=== PATIENT | male | born 1940 | race Caucasian/White ===

== ENCOUNTER 2019-05-10 01:06 | Observation (INO) | payer MEDICARE, OTHER ==
[2019-05-10] MEDS ORDERED: Sodium Chloride 0.9% 10 ML Syringe FLUSH PRN (01:36)
--- NOTE | 2019-05-10 01:50 | EDM.PDOC ---
ED HPI GENERAL MEDICAL PROBLEM - General Chief Complaint: Cardiovascular Problem Stated Complaint: Slow Heart Rate Time Seen by Provider: 05/10/19 01:17 Source of Information: Reports: Patient, EMS, EMS Notes Reviewed History Limitations: Reports: No Limitations - History of Present Illness INITIAL COMMENTS - FREE TEXT/NARRATIVE: Jude is a pleasant 78 year-old male who arrives via EMS. He states that he awoke and felt the urge to have a bowel movement, but upon standing to get out of bed, he felt as if he "was going to black out". In response to his symptoms , he ambulated downstairs and lied down for awhile. He felt improved, but continued to have the urge to go to the bathroom and again, felt light-headed. This was associated with some "intestinal discomfort" although similar to the diarrhea he has been fighting on and off for about a month. He acknowledges some "chest pains" on a transient basis with the significant exertion of trying to move an ice house earlier today, which resolved immediately upon resting. This is not an atypical occurrence for him. He otherwise had no diaphoresis, SOB, or nausea. Denies fevers or recent illness. ROS only remarkable for a sore shoulder which he attributes to arthritis. EMS was called and found his initial pulse to be 27 bpm. He was provided with a single dose of .5 mg of atropine and had an otherwise uneventful transport. He did feel somewhat chilly upon arrival, and his heart rate continued in the 90's. - Related Data Allergies Allergy/AdvReac Type Severity Reaction Status Date / Time Penicillins Allergy Rash Verified 05/10/19 01:31 procaine HCl [From Novocain] Allergy Syncope Verified 05/10/19 01:31 Home Meds: Home Meds Ferrous Sulfate 325 mg PO DAILY 03/30/15 [History] Gabapentin [Neurontin] 100 mg PO TID 03/30/15 [History] Omeprazole 20 mg PO BIDAC 03/30/15 [History] SUMAtriptan succinate [Sumatriptan Succinate] 25 mg PO DAILY PRN 03/30/15 [ History] Simvastatin [Zocor] 20 mg PO BEDTIME 03/30/15 [History] Terazosin [Hytrin] 1 mg PO BEDTIME 03/30/15 [History] predniSONE [Prednisone] 6 mg PO DAILY 03/30/15 [History] traMADol [Ultram] 50 mg PO QID 03/30/15 [History] Carvedilol [Coreg] 12.5 mg PO BID 05/10/19 [History] lisinopriL [Lisinopril] 10 mg PO DAILY 05/10/19 [History] Past Medical History HEENT History: Reports: Macular Degeneration Other HEENT History: Lens implants bilateral, and injections in right eye every 6 weeks Cardiovascular History: Reports: Heart Failure (with EF of 30% on echo per pt; followed by Dr. Clarke Bland in [place]), [place] Gastrointestinal History: Reports: GERD, Other (See Below) Other Gastrointestinal History: Louis Wrap for Barretts esophogus Genitourinary History: Reports: BPH Musculoskeletal History: Reports: Arthritis Neurological History: Reports: CVA, Migraines Hematologic History: Reports: Anemia Dermatologic History: Reports: Eczema Other Dermatologic History: rash on back and right leg - Past Surgical History GI Surgical History: Reports: Alexander Fundoplication, Small Bowel, Other (See Below) Social & Family History - Living Situation & Occupation Living situation: Reports: ED ROS GENERAL - Review of Systems Review Of Systems: See Below Constitutional: Reports: No Symptoms Respiratory: Reports: No Symptoms Cardiovascular: Reports: Other (stable angina) GI/Abdominal: Reports: Diarrhea Musculoskeletal: Reports: Shoulder Pain Neurological: Reports: Dizziness ED EXAM, GENERAL - Physical Exam Exam: See Below Exam Limited By: No Limitations General Appearance: Alert, WD/WN, No Apparent Distress Eye Exam: Bilateral Eye: EOMI, PERRL Ears: Hearing Grossly Normal Throat/Mouth: Other (touch on the dry side) Neck: Other (no JVD evident) Respiratory/Chest: No Respiratory Distress, Lungs Clear, Normal Breath Sounds, Chest Non-Tender Cardiovascular: Regular Rate, Rhythm, No Edema, No Murmur GI/Abdominal: Normal Bowel Sounds, Soft, Non-Tender, No Distention Extremities: Normal Inspection, Non-Tender, No Pedal Edema, Normal Capillary Refill Neurological: Alert, Oriented, Normal Cognition, No Motor/Sensory Deficits Psychiatric: Normal Affect Skin Exam: Warm, Dry, Normal Color Lymphatic: No Adenopathy EKG INTERPRETATION EKG Date: 05/10/19 [place]: Normal QRS: LBBB Course - Vital Signs Text/Narrative:: Discussed differential diagnostic considerations and treatment options with Jude. He would appreciate it if we could continue to monitor him here. He does not usually follow Na-restrictions in regard to his diet at home. Seems a bit volume-depleted. Will lock IV and monitor for any further bradycardia. No overt manifestations of ischemia. He is noted to be on a non-selective beta candida, which may be blunting his anticipated orthostatic increase in pulse, and this may be further exacerbated by his decreased ejection fraction limiting his increase in cardiac output. Last Recorded V/S: Last Vital Signs Temp 98.9 F 05/10/19 08:18 Pulse 87 05/10/19 08:18 Resp 18 05/10/19 08:18 BP 127/56 L 05/10/19 08:18 Pulse Ox 94 L 05/10/19 08:18 - Orders/Labs/Meds Orders: Active Orders 24 hr Category Date Time Status Cardiac Monitoring [RC] Q4H Care 05/10/19 01:18 Active EKG Documentation Completion [RC] ASDIRECTED Care 05/10/19 01:20 Active Regular Diet [DIET] Diet 05/10/19 Breakfast Ordered Sodium Chloride 0.9% [Saline Flush] Med 05/10/19 01:36 Active 10 ml FLUSH ASDIRECTED PRN Saline Lock Insert [OM.PC] Routine Oth 05/10/19 01:36 Ordered EKG 12 Lead [EK] Stat Ther 05/10/19 01:19 Ordered Medication Orders Carvedilol (Coreg) 12.5 mg PO BID [facility] Last Admin: 05/10/19 08:15 Dose: 12.5 mg Lisinopril (Prinivil) 10 mg PO DAILY [facility] Last Admin: 05/10/19 08:15 Dose: 10 mg Omeprazole (Omeprazole) 40 mg PO DAILY [facility] Last Admin: 05/10/19 08:14 Dose: Not Given Admin: 05/10/19 08:14 Dose: 40 mg Prednisone (Prednisone) 1 mg PO WITHBREAKFAST [facility] Last Admin: 05/10/19 08:14 Dose: 1 mg Simvastatin (Zocor) 20 mg PO BEDTIME [facility] Sodium Chloride (Saline Flush) 10 ml FLUSH ASDIRECTED PRN PRN Reason: Keep Vein Open Terazosin HCl (Hytrin) 3 mg PO BEDTIME [facility] Labs: Laboratory Tests 05/10/19 05/10/19 05/10/19 Range/Units 01:44 01:44 01:44 WBC 13.0 H D (4.0-11.0) K/uL RBC 3.63 L (4.50-6.50) M/uL Hgb 12.7 L (13.0-18.0) g/dL Hct 37.0 L (40.0-54.0) % MCV 102 H (76-96) fL MCH 35.0 H (27.0-32.0) pg MCHC 34.3 (31.0-35.0) g/dL RDW 13.3 (11.0-16.0) % Plt Count 289 (150-400) K/uL MPV 9.8 (6.0-10.0) fL Neut % (Auto) 77.0 H (45.0-70.0) % Lymph % (Auto) 9.8 L (20.0-40.0) % [place] % (Auto) 11.9 H (3.0-10.0) % Eos % (Auto) 1.1 (1.0-5.0) % Baso % (Auto) 0.2 (0.0-0.5) % Neut # (Auto) 10.04 H (2.00-7.50) K/uL Lymph # (Auto) 1.28 L (1.50-4.00) K/uL [place] # (Auto) 1.55 H (0.20-0.80) K/uL Eos # (Auto) 0.14 (0.04-0.40) K/uL Baso # (Auto) 0.03 (0.02-0.10) K/uL Sodium 144 (136-145) mmol/L Potassium 5.2 H D (3.5-5.1) mmol/L Chloride 107 (98-107) mmol/L Carbon Dioxide 21.4 (21.0-32.0) mmol/L Anion Gap 20.8 H (5.0-15.0) mmol/L BUN 23 (8-26) mg/dL Creatinine 2.23 H D (0.70-1.30) mg/dL Est Cr Clr Drug Dosing TNP Estimated GFR (MDRD) 29 L (>60) MLS/MIN BUN/Creatinine Ratio 10.3 (6-25) Glucose 135 H (74-100) mg/dL Calcium 8.4 L (8.5-10.1) mg/dL Magnesium (1.8-2.4) mg/dL Total Bilirubin 0.4 (0.0-1.0) mg/dL AST 43 H (15-37) U/L ALT 37 (12-78) U/L Alkaline Phosphatase 90 (46-116) U/L Troponin I 0.003 D (0.000-0.060) ng/mL B-Natriuretic Peptide (0-450) pg/mL Total Protein 6.5 (6.4-8.2) g/dL Albumin 3.6 (3.4-5.0) g/dL Globulin 2.9 (2.2-4.2) g/dL Albumin/Globulin Ratio 1.2 (0.8-2.0) TSH, Ultra Sensitive 4.754 H (0.358-3.740) uIU/mL 05/10/19 05/10/19 Range/Units 01:44 02:03 WBC (4.0-11.0) K/uL RBC (4.50-6.50) M/uL Hgb (13.0-18.0) g/dL Hct (40.0-54.0) % MCV (76-96) fL MCH (27.0-32.0) pg MCHC (31.0-35.0) g/dL RDW (11.0-16.0) % Plt Count (150-400) K/uL MPV (6.0-10.0) fL Neut % (Auto) (45.0-70.0) % Lymph % (Auto) (20.0-40.0) % Thur[place] % (Auto) (3.0-10.0) % Eos % (Auto) (1.0-5.0) % Baso % (Auto) (0.0-0.5) % Neut # (Auto) (2.00-7.50) K/uL Lymph # (Auto) (1.50-4.00) K/uL Thurston # (Auto) (0.20-0.80) K/uL Eos # (Auto) (0.04-0.40) K/uL Baso # (Auto) (0.02-0.10) K/uL Sodium (136-145) mmol/L Potassium (3.5-5.1) mmol/L Chloride (98-107) mmol/L Carbon Dioxide (21.0-32.0) mmol/L Anion Gap (5.0-15.0) mmol/L BUN (8-26) mg/dL Creatinine (0.70-1.30) mg/dL Est Cr Clr Drug Dosing Estimated GFR (MDRD) (>60) MLS/MIN BUN/Creatinine Ratio (6-25) Glucose (74-100) mg/dL Calcium (8.5-10.1) mg/dL Magnesium 1.8 (1.8-2.4) mg/dL Total Bilirubin (0.0-1.0) mg/dL AST (15-37) U/L ALT (12-78) U/L Alkaline Phosphatase (46-116) U/L Troponin I (0.000-0.060) ng/mL B-Natriuretic Peptide 487 H (0-450) pg/mL Total Protein (6.4-8.2) g/dL Albumin (3.4-5.0) g/dL Globulin (2.2-4.2) g/dL Albumin/Globulin Ratio (0.8-2.0) TSH, Ultra Sensitive (0.358-3.740) uIU/mL Meds: Medications Generic Name Dose Route Start Last Admin Trade Name Freq PRN Reason Stop Dose Admin Carvedilol 12.5 mg 05/10/19 08:00 05/10/19 08:15 Coreg PO 12.5 mg BID ANIYA Administration Lisinopril 10 mg 05/10/19 08:00 05/10/19 08:15 Prinivil PO 10 mg DAILY ANIYA Administration Omeprazole 40 mg 05/10/19 07:00 05/10/19 08:14 Omeprazole PO 40 mg DAILY ANIYA Administration Prednisone 1 mg 05/10/19 07:00 05/10/19 08:14 Prednisone PO 1 mg WITHBREAKFAST ANIYA Administration Simvastatin 20 mg 05/10/19 20:00 Zocor PO BEDTIME ANIYA Sodium Chloride 10 ml 05/10/19 01:36 Saline Flush FLUSH ASDIRECTED PRN Keep Vein Open Terazosin HCl 3 mg 05/10/19 20:00 Hytrin PO BEDTIME ANIYA Departure - Departure Time of Disposition: 03:00 Disposition: Admitted As Inpatient 66 Clinical Impression: Orthostasis Sepsis Event Note - Focused Exam Vital Signs: Vital Signs Temp Pulse Resp BP Pulse Ox 05/10/19 01:20 96.3 F 94 18 146/69 H 100 Date Exam was Performed: 05/10/19 Time Exam was Performed: 09:14 - My Orders Last 24 Hours: My Active Orders 05/10/19 01:18 Cardiac Monitoring [RC] Q4H 05/10/19 01:19 EKG 12 Lead [EK] Stat 05/10/19 01:20 EKG Documentation Completion [RC] ASDIRECTED 05/10/19 01:36 Sodium Chloride 0.9% [Saline Flush] 10 ml FLUSH ASDIRECTED PRN Saline Lock Insert [OM.PC] Routine 05/10/19 Breakfast Regular Diet [DIET] - Assessment/Plan Last 24 Hours: My Active Orders 05/10/19 01:18 Cardiac Monitoring [RC] Q4H 05/10/19 01:19 EKG 12 Lead [EK] Stat 05/10/19 01:20 EKG Documentation Completion [RC] ASDIRECTED 05/10/19 01:36 Sodium Chloride 0.9% [Saline Flush] 10 ml FLUSH ASDIRECTED PRN Saline Lock Insert [OM.PC] Routine 05/10/19 Breakfast Regular Diet [DIET]
[2019-05-10] MEDS ORDERED: PREDNISONE 1 MG PO SCH (07:00)
[2019-05-10] MEDS ORDERED: LISINOPRIL 20 MG PO SCH (08:00)
[2019-05-10] MEDS ORDERED: CARVEDILOL 25 MG PO SCH (08:00)
[2019-05-10 08:15] VITALS: BP 127/56; PULSE 87
[2019-05-10] MEDS ORDERED: Ondansetron 4 MG/2 ML SDV IVPUSH PRN (09:28)
[2019-05-10] MEDS ORDERED: Acetaminophen 500 MG Tab PO PRN (09:29)
--- NOTE | 2019-05-10 09:38 | PCM.PN ---
- General Info Date of Service: 05/10/19 Subjective Update: Jude reports a mild frontal headache. He continues to have some abdominal discomfort. For that reason, he passed on breakfast. No chest pain or bradycardic events over night. No further cold intolerance. Some arthritis discomfort and he usually takes tylenol with decent pain relief. No apparent gerd issues on ppi. - Review of Systems Pulmonary: Reports: No Symptoms Cardiovascular: Reports: No Symptoms Gastrointestinal: Reports: Nausea Neurological: Reports: Headache - Patient Data Vitals - Most Recent: Last Vital Signs Temp 98.9 F 05/10/19 08:18 Pulse 87 05/10/19 08:18 Resp 18 05/10/19 08:18 BP 127/56 L 05/10/19 08:18 Pulse Ox 94 L 05/10/19 08:18 Weight - Most Recent: 139 lb 2 oz I&O - Last 24 Hours: Intake & Output 05/09/19 05/10/19 05/10/19 22:59 06:59 14:59 Output Total 400 Balance -400 Lab Results Last 24 Hours: Laboratory Results - last 24 hr 05/10/19 05/10/19 05/10/19 Range/Units 01:44 01:44 01:44 WBC 13.0 H D (4.0-11.0) K/uL RBC 3.63 L (4.50-6.50) M/uL Hgb 12.7 L (13.0-18.0) g/dL Hct 37.0 L (40.0-54.0) % MCV 102 H (76-96) fL MCH 35.0 H (27.0-32.0) pg MCHC 34.3 (31.0-35.0) g/dL RDW 13.3 (11.0-16.0) % Plt Count 289 (150-400) K/uL MPV 9.8 (6.0-10.0) fL Neut % (Auto) 77.0 H (45.0-70.0) % Lymph % (Auto) 9.8 L (20.0-40.0) % Towns % (Auto) 11.9 H (3.0-10.0) % Eos % (Auto) 1.1 (1.0-5.0) % Baso % (Auto) 0.2 (0.0-0.5) % Neut # (Auto) 10.04 H (2.00-7.50) K/uL Lymph # (Auto) 1.28 L (1.50-4.00) K/uL [place]s # (Auto) 1.55 H (0.20-0.80) K/uL Eos # (Auto) 0.14 (0.04-0.40) K/uL Baso # (Auto) 0.03 (0.02-0.10) K/uL Sodium 144 (136-145) mmol/L Potassium 5.2 H D (3.5-5.1) mmol/L Chloride 107 (98-107) mmol/L Carbon Dioxide 21.4 (21.0-32.0) mmol/L Anion Gap 20.8 H (5.0-15.0) mmol/L BUN 23 (8-26) mg/dL Creatinine 2.23 H D (0.70-1.30) mg/dL Est Cr Clr Drug Dosing TNP Estimated GFR (MDRD) 29 L (>60) MLS/MIN BUN/Creatinine Ratio 10.3 (6-25) Glucose 135 H (74-100) mg/dL Calcium 8.4 L (8.5-10.1) mg/dL Magnesium (1.8-2.4) mg/dL Total Bilirubin 0.4 (0.0-1.0) mg/dL AST 43 H (15-37) U/L ALT 37 (12-78) U/L Alkaline Phosphatase 90 (46-116) U/L Troponin I 0.003 D (0.000-0.060) ng/mL B-Natriuretic Peptide (0-450) pg/mL Total Protein 6.5 (6.4-8.2) g/dL Albumin 3.6 (3.4-5.0) g/dL Globulin 2.9 (2.2-4.2) g/dL Albumin/Globulin Ratio 1.2 (0.8-2.0) TSH, Ultra Sensitive 4.754 H (0.358-3.740) uIU/mL 05/10/19 05/10/19 Range/Units 01:44 02:03 WBC (4.0-11.0) K/uL RBC (4.50-6.50) M/uL Hgb (13.0-18.0) g/dL Hct (40.0-54.0) % MCV (76-96) fL MCH (27.0-32.0) pg MCHC (31.0-35.0) g/dL RDW (11.0-16.0) % Plt Count (150-400) K/uL MPV (6.0-10.0) fL Neut % (Auto) (45.0-70.0) % Lymph % (Auto) (20.0-40.0) % Towns % (Auto) (3.0-10.0) % Eos % (Auto) (1.0-5.0) % Baso % (Auto) (0.0-0.5) % Neut # (Auto) (2.00-7.50) K/uL Lymph # (Auto) (1.50-4.00) K/uL [place]s # (Auto) (0.20-0.80) K/uL Eos # (Auto) (0.04-0.40) K/uL Baso # (Auto) (0.02-0.10) K/uL Sodium (136-145) mmol/L Potassium (3.5-5.1) mmol/L Chloride (98-107) mmol/L Carbon Dioxide (21.0-32.0) mmol/L Anion Gap (5.0-15.0) mmol/L BUN (8-26) mg/dL Creatinine (0.70-1.30) mg/dL Est Cr Clr Drug Dosing Estimated GFR (MDRD) (>60) MLS/MIN BUN/Creatinine Ratio (6-25) Glucose (74-100) mg/dL Calcium (8.5-10.1) mg/dL Magnesium 1.8 (1.8-2.4) mg/dL Total Bilirubin (0.0-1.0) mg/dL AST (15-37) U/L ALT (12-78) U/L Alkaline Phosphatase (46-116) U/L Troponin I (0.000-0.060) ng/mL B-Natriuretic Peptide 487 H (0-450) pg/mL Total Protein (6.4-8.2) g/dL Albumin (3.4-5.0) g/dL Globulin (2.2-4.2) g/dL Albumin/Globulin Ratio (0.8-2.0) TSH, Ultra Sensitive (0.358-3.740) uIU/mL Med Orders - Current: Current Medications Acetaminophen (Tylenol Extra Strength) 1,000 mg PO Q6H PRN PRN Reason: Pain/Fever Carvedilol (Coreg) 12.5 mg PO BID [facility] Last Admin: 05/10/19 08:15 Dose: 12.5 mg Lisinopril (Prinivil) 10 mg PO DAILY [facility] Last Admin: 05/10/19 08:15 Dose: 10 mg Omeprazole (Omeprazole) 40 mg PO DAILY [facility] Last Admin: 05/10/19 08:14 Dose: 40 mg Ondansetron HCl (Zofran) 4 mg IVPUSH Q4H PRN PRN Reason: Nausea/Vomiting Prednisone (Prednisone) 1 mg PO WITHBREAKFAST [facility] Last Admin: 05/10/19 08:14 Dose: 1 mg Simvastatin (Zocor) 20 mg PO BEDTIME [facility] Sodium Chloride (Saline Flush) 10 ml FLUSH ASDIRECTED PRN PRN Reason: Keep Vein Open Terazosin HCl (Hytrin) 3 mg PO BEDTIME [facility] - Exam General: Alert, Oriented HEENT: Pupils Equal, EOMI, Mucous Membr. Moist/[address] Neck: Supple Lungs: Normal Respiratory Effort Cardiovascular: Regular Rate GI/Abdominal Exam: Normal Bowel Sounds, Soft, Non-Tender Extremities: Normal Inspection Skin: Warm, Dry Neurological: No New Focal Deficit Psy/Mental Status: Alert, Normal Affect, Normal Mood Sepsis Event Note - Evaluation Sepsis Screening Result: No Definite Risk - Focused Exam Vital Signs: Vital Signs Temp Temp Pulse Pulse Resp BP BP 05/10/19 08:18 98.9 F 87 18 127/56 L 05/10/19 08:15 87 127/56 L 05/10/19 03:15 98.4 F 91 16 127/63 05/10/19 01:20 96.3 F 94 18 146/69 H Pulse Ox 05/10/19 08:18 94 L 05/10/19 08:15 05/10/19 03:15 96 05/10/19 01:20 100 Date Exam was Performed: 05/10/19 Time Exam was Performed: 09:33 - Problem List & Annotations (1) Orthostasis SNOMED Code(s): 07645146 Code(s): I95.1 - ORTHOSTATIC HYPOTENSION Status: Acute Priority: High Current Visit: Yes Onset Date: ~05/09/19 - Problem List Review Problem List Initiated/Reviewed/Updated: Yes - My Orders Last 24 Hours: My Active Orders 05/10/19 01:18 Cardiac Monitoring [RC] Q4H 05/10/19 01:19 EKG 12 Lead [EK] Stat 05/10/19 01:20 EKG Documentation Completion [RC] ASDIRECTED 05/10/19 01:36 Sodium Chloride 0.9% [Saline Flush] 10 ml FLUSH ASDIRECTED PRN Saline Lock Insert [OM.PC] Routine 05/10/19 02:21 Patient Status [ADT] Routine 05/10/19 02:25 Bladder Scan [RC] ASDIRECTED 05/10/19 07:00 Omeprazole 40 mg PO DAILY predniSONE 1 mg PO WITHBREAKFAST 05/10/19 08:00 carvediloL [Coreg] 12.5 mg PO BID lisinopriL [Prinivil] 10 mg PO DAILY 05/10/19 09:28 Ondansetron [Zofran] 4 mg IVPUSH Q4H PRN 05/10/19 09:29 Acetaminophen [Tylenol Extra Strength] 1,000 mg PO Q6H PRN 05/10/19 09:31 TROPONIN I [CHEM] Routine EKG 12 Lead [EK] Routine 05/10/19 09:32 EKG Documentation Completion [RC] ASDIRECTED 05/10/19 20:00 Simvastatin [Zocor] 20 mg PO BEDTIME Terazosin [Hytrin] 3 mg PO BEDTIME 05/10/19 Breakfast Regular Diet [DIET]
[2019-05-10] MEDS ORDERED: TERAZOSIN 1 MG PO SCH (20:00)
[2019-05-10] MEDS ORDERED: SIMVASTATIN 40 MG PO SCH (20:00)
== END 2019-05-10 14:07 | disposition home or self-care (01) ==
LOC: LB.ED 01:06 → LB.MS 02:21 → UNDOADMOB 03:00 → LB.MS 03:00
PROVIDERS: ADMIT Family Medicine; ATTEND Family Medicine
DX: I95.1 Orthostatic hypotension (principal); I50.9 Heart failure, unspecified; I25.2 Old myocardial infarction; K21.9 Gastro-esophageal reflux disease without esophagitis; G43.909 Migraine, unspecified, not intractable, without status migrainosus; K22.70 Barrett's esophagus without dysplasia; L30.9 Dermatitis, unspecified; M19.90 Unspecified osteoarthritis, unspecified site; Z88.0 Allergy status to penicillin; Z88.1 Allergy status to other antibiotic agents; Z79.899 Other long term (current) drug therapy; Z86.73 Personal history of transient ischemic attack (TIA), and cerebral infarction without residual deficits; Z98.890 Other specified postprocedural states
CPT/HCPCS: 36415; 51798; 80053; 83735; 83880; 84443; 84484; 85025; 93005; 96374; 99285-25; A9270-GY; G0378; J2405

== ENCOUNTER 2019-08-31 01:42 | Observation (INO) | payer OTHER ==
--- NOTE | 2019-08-31 03:31 | EDM.PDOC ---
ED HPI GENERAL MEDICAL PROBLEM - General Chief Complaint: Cardiovascular Problem Stated Complaint: low pulse rate and BP also low Time Seen by Provider: 08/31/19 03:00 Source of Information: Reports: Patient, Family History Limitations: Reports: No Limitations - History of Present Illness INITIAL COMMENTS - FREE TEXT/NARRATIVE: This patient presents to the ED for evaluation of low heart rate. He states he woke from sleep at approximately 2400 "gasping for breath" and feeling light headed. He states he tried to get out of bed and "fell to his knees." His took his blood pressure which she said was low and his pulse was in the 30s. He denies having chest pain but states he had "head congestion" that he adds he has every night. He also states he has had a cough since February. He denies fever, nausea, vomiting. He had a similar episode in May for which he was admitted to the hospital. 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 Onset: Today - Related Data Allergies Allergy/AdvReac Type Severity Reaction Status Date / Time Penicillins Allergy Rash Verified 05/10/19 01:31 procaine HCl [From Novocain] Allergy Syncope Verified 05/10/19 01:31 Home Meds: Home Meds Ferrous Sulfate 325 mg PO DAILY 03/30/15 [History] Gabapentin [Neurontin] 100 mg PO TID 03/30/15 [History] Omeprazole 20 mg PO BIDAC 03/30/15 [History] SUMAtriptan succinate [Sumatriptan Succinate] 25 mg PO DAILY PRN 03/30/15 [ History] Simvastatin [Zocor] 20 mg PO BEDTIME 03/30/15 [History] Terazosin [Hytrin] 1 mg PO BEDTIME 03/30/15 [History] predniSONE [Prednisone] 5 mg PO DAILY 03/30/15 [History] traMADol [Ultram] 50 mg PO QID 03/30/15 [History] carvediloL [Coreg] 12.5 mg PO BID 05/10/19 [History] lisinopriL [Lisinopril] 10 mg PO DAILY 05/10/19 [History] Past Medical History HEENT History: Reports: Macular Degeneration Other HEENT History: Lens implants bilateral, and injections in right eye every 6 weeks Cardiovascular History: Reports: Heart Failure (with EF of 30% on echo per pt; followed by Dr. Clarke Bland in [place]), [place] Respiratory History: Reports: None Gastrointestinal History: Reports: GERD, Other (See Below) Other Gastrointestinal History: Louis Wrap for Barretts esophogus Genitourinary History: Reports: BPH Musculoskeletal History: Reports: Arthritis Neurological History: Reports: CVA, Migraines Psychiatric History: Reports: None Endocrine/Metabolic History: Reports: None Hematologic History: Reports: Anemia Oncologic (Cancer) History: Reports: None Dermatologic History: Reports: Eczema Other Dermatologic History: rash on back and right leg - Past Surgical History GI Surgical History: Reports: Alexander Fundoplication, Small Bowel, Other (See Below) Social & Family History - Caffeine Use Caffeine Use: Reports: Coffee - Living Situation & Occupation Living situation: Reports: ED ROS GENERAL - Review of Systems Review Of Systems: See Below Constitutional: Denies: Fever, Weakness HEENT: Reports: No Symptoms Respiratory: Reports: Cough Cardiovascular: Reports: Blood Pressure Problem. Denies: Chest Pain, Edema, Orthopnea GI/Abdominal: Denies: Abdominal Pain, Diarrhea, Nausea, Vomiting Musculoskeletal: Reports: No Symptoms Skin: Reports: No Symptoms Neurological: Reports: No Symptoms ED EXAM, GENERAL - Physical Exam Exam: See Below Exam Limited By: No Limitations General Appearance: Alert, WD/WN, No Apparent Distress Eye Exam: Bilateral Eye: PERRL Ears: Normal External Exam Nose: Normal Inspection Throat/Mouth: Normal Inspection, Normal Oropharynx Head: Atraumatic, Normocephalic Neck: Normal Inspection, Supple, Full Range of Motion Respiratory/Chest: No Respiratory Distress, Lungs Clear, Normal Breath Sounds, No Accessory Muscle Use, Chest Non-Tender Cardiovascular: Regular Rate, Rhythm Neurological: Alert, Oriented Psychiatric: Normal Affect Skin Exam: Warm, Dry, Intact Course - Vital Signs Last Recorded V/S: Last Vital Signs Temp 36.3 C 08/31/19 02:45 Pulse 76 08/31/19 02:45 Resp 18 08/31/19 02:45 BP 123/66 08/31/19 02:45 Pulse Ox 97 08/31/19 02:45 - Orders/Labs/Meds Orders: Active Orders 24 hr Category Date Time Status Admission Diagnosis [ADT] Stat ADT 08/31/19 03:50 Ordered EKG Documentation Completion [RC] ASDIRECTED Care 08/31/19 03:03 Active Chest 1V Frontal [CR] Stat Exams 08/31/19 03:03 Ordered Labs: Laboratory Tests 08/31/19 08/31/19 Range/Units 03:15 03:15 WBC 5.4 D (4.0-11.0) K/uL RBC 2.94 L (4.50-6.50) M/uL Hgb 10.6 L (13.0-18.0) g/dL Hct 30.5 L (40.0-54.0) % MCV 104 H (76-96) fL MCH 36.1 H (27.0-32.0) pg MCHC 34.8 (31.0-35.0) g/dL RDW 13.2 (11.0-16.0) % Plt Count 264 (150-400) K/uL MPV 8.8 (6.0-10.0) fL Neut % (Auto) 44.8 L (45.0-70.0) % Lymph % (Auto) 32.1 (20.0-40.0) % [place]ia % (Auto) 18.7 H (3.0-10.0) % Eos % (Auto) 3.7 (1.0-5.0) % Baso % (Auto) 0.7 H (0.0-0.5) % Neut # (Auto) 2.39 (2.00-7.50) K/uL Lymph # (Auto) 1.72 (1.50-4.00) K/uL Cassia # (Auto) 1.00 H (0.20-0.80) K/uL Eos # (Auto) 0.20 (0.04-0.40) K/uL Baso # (Auto) 0.04 (0.02-0.10) K/uL Sodium 145 (136-145) mmol/L Potassium 4.5 (3.5-5.1) mmol/L Chloride 109 H (98-107) mmol/L Carbon Dioxide 28.4 D (21.0-32.0) mmol/L Anion Gap 12.1 (5.0-15.0) mmol/L BUN 18 D (8-26) mg/dL Creatinine 1.15 D (0.70-1.30) mg/dL Est Cr Clr Drug Dosing 53.78 mL/min Estimated GFR (MDRD) > 60 (>60) MLS/MIN BUN/Creatinine Ratio 15.7 (6-25) Glucose 122 H (74-100) mg/dL Calcium 8.3 L (8.5-10.1) mg/dL Troponin I < 0.017 (0.000-0.060) ng/mL B-Natriuretic Peptide 221 D (0-450) pg/mL - Re-Assessments/Exams Free Text/Narrative Re-Assessment/Exam: 08/31/19 03:52 This patient presents to the ED for evaluation of bradycardia. While in the ED being monitored, he has not had any bradycardia noted; however, given his report of a fall related to having a low blood pressure, I will admit him to the hospital on observation status for cardiac monitoring. the patient and his were agreeable with this. Departure - Departure Time of Disposition: 03:55 Disposition: Refer to Observation Condition: Good, Fair Clinical Impression: Bradycardia Referrals: PCP,None [Primary Care Provider] - Forms: ED Department Discharge Sepsis Event Note - Focused Exam Vital Signs: Vital Signs Temp Pulse Resp BP Pulse Ox 08/31/19 02:45 36.3 C 76 18 123/66 97 Date Exam was Performed: 08/31/19 Time Exam was Performed: 03:52 - My Orders Last 24 Hours: My Active Orders 08/31/19 03:03 EKG Documentation Completion [RC] ASDIRECTED Chest 1V Frontal [CR] Stat 08/31/19 03:50 Admission Diagnosis [ADT] Stat - Assessment/Plan Last 24 Hours: My Active Orders 08/31/19 03:03 EKG Documentation Completion [RC] ASDIRECTED Chest 1V Frontal [CR] Stat 08/31/19 03:50 Admission Diagnosis [ADT] Stat
[2019-08-31] MEDS ORDERED: Ondansetron 4 MG Tab.DIS PO PRN (04:17)
[2019-08-31] MEDS ORDERED: LORazepam 0.5 MG Tab PO PRN (04:17)
[2019-08-31] MEDS ORDERED: Acetaminophen 325 MG Tab PO PRN (04:17)
[2019-08-31] MEDS ORDERED: SUMATRIPTAN SUCCINATE 25 MG PO PRN (04:19)
[2019-08-31] MEDS ORDERED: Non-Formulary Medication 1 Each (Omeprazole [Omeprazole] 20 MG) PO SCH (07:00)
[2019-08-31 07:50] VITALS: BP 148/68; PULSE 72
[2019-08-31] MEDS ORDERED: Non-Formulary Medication 1 Each (Ferrous Sulfate [Ferrous Sulfate] 325 MG) PO SCH (08:00)
[2019-08-31] MEDS ORDERED: Non-Formulary Medication 1 Each (Tramadol [Ultram] 50 MG) PO SCH (08:00)
[2019-08-31] MEDS ORDERED: Non-Formulary Medication 1 Each (Gabapentin [Neurontin] 100 MG) PO SCH (08:00)
[2019-08-31] MEDS ORDERED: Non-Formulary Medication 1 Each (Lisinopril [Lisinopril] 10 MG) PO SCH (08:00)
[2019-08-31] MEDS ORDERED: PREDNISONE 5 MG PO SCH (08:00)
--- NOTE | 2019-08-31 08:22 | CR ---
DATE OF SERVICE: 08/31/19 CLINICAL DATA: bradycardia AP CHEST: Comparison is made to a prior exam dated 03/30/15. The heart size is normal. The lungs are clear. No pneumothorax. No pleural effusions. No evidence of acute intrathoracic disease. [id number] [facility]
[2019-08-31] MEDS ORDERED: traMADol 50 MG Tab ONE (09:13)
[2019-08-31] MEDS ORDERED: Gabapentin 100 MG Cap ONE (09:13)
[2019-08-31] MEDS ORDERED: predniSONE 5 MG Tab ONE (09:14)
[2019-08-31] MEDS ORDERED: Omeprazole 20 MG Cap.CR PO ONE (09:30)
[2019-08-31] MEDS ORDERED: traMADol 50 MG Tab PO ONE (09:30)
[2019-08-31] MEDS ORDERED: Gabapentin 100 MG Cap PO ONE (09:30)
[2019-08-31] MEDS ORDERED: Ferrous Sulfate 325 MG Tab PO ONE (09:30)
[2019-08-31] MEDS ORDERED: predniSONE 5 MG Tab PO ONE (09:30)
--- NOTE | 2019-08-31 11:43 | PCM.DCSUM1 ---
Discharge Summary - Hospital Course Free Text/Narrative:: Patient has had no further episodes of bradycardia since admission. He denies chest pain, other concerns or complaints. Diagnosis: Stroke: No - Discharge Data Discharge Date: 08/31/19 Discharge Disposition: Home, Self-Care 01 Condition: Good - Referral to Home Health Primary Care Physician: PCP None - Discharge Plan *PRESCRIPTION DRUG MONITORING PROGRAM REVIEWED*: No Home Medications: Home Meds Ferrous Sulfate 325 mg PO DAILY 03/30/15 [History] Gabapentin [Neurontin] 100 mg PO TID 03/30/15 [History] Omeprazole 20 mg PO BIDAC 03/30/15 [History] SUMAtriptan succinate [Sumatriptan Succinate] 25 mg PO DAILY PRN 03/30/15 [ History] Simvastatin [Zocor] 20 mg PO BEDTIME 03/30/15 [History] Terazosin [Hytrin] 1 mg PO BEDTIME 03/30/15 [History] predniSONE [Prednisone] 5 mg PO DAILY 03/30/15 [History] traMADol [Ultram] 50 mg PO QID 03/30/15 [History] carvediloL [Coreg] 12.5 mg PO BID 05/10/19 [History] lisinopriL [Lisinopril] 10 mg PO DAILY 05/10/19 [History] Forms: ED Department Discharge Referrals: PCP,None [Primary Care Provider] - - Discharge Summary/Plan Comment DC Time >30 min.: Yes - General Info Date of Service: 08/31/19 Admission Dx/Problem (Free Text: Bradycardia Hypotension Subjective Update: No further episodes of bradycardia or hypotension. He denies chest pain, difficulty breathing, headache, nausea, vomiting, or diarrhea. Functional Status: Reports: Tolerating Diet - Review of Systems General: Reports: No Symptoms HEENT: Reports: No Symptoms Pulmonary: Denies: Shortness of Breath, Cough Cardiovascular: Denies: Chest Pain, Palpitations, Lightheadedness Gastrointestinal: Denies: Abdominal Pain, Diarrhea, Nausea, Vomiting Musculoskeletal: Reports: No Symptoms Skin: Reports: No Symptoms Neurological: Reports: No Symptoms - Patient Data Vitals - Most Recent: Last Vital Signs Temp 36.3 C 08/31/19 07:49 Pulse 72 08/31/19 07:49 Resp 16 08/31/19 07:49 BP 148/68 H 05/24/20 07:49 Pulse Ox 96 08/31/19 07:49 Weight - Most Recent: 65.045 kg Lab Results - Last 24 hrs: Laboratory Results - last 24 hr 08/31/19 08/31/19 Range/Units 03:15 03:15 WBC 5.4 D (4.0-11.0) K/uL RBC 2.94 L (4.50-6.50) M/uL Hgb 10.6 L (13.0-18.0) g/dL Hct 30.5 L (40.0-54.0) % MCV 104 H (76-96) fL MCH 36.1 H (27.0-32.0) pg MCHC 34.8 (31.0-35.0) g/dL RDW 13.2 (11.0-16.0) % Plt Count 264 (150-400) K/uL MPV 8.8 (6.0-10.0) fL Neut % (Auto) 44.8 L (45.0-70.0) % Lymph % (Auto) 32.1 (20.0-40.0) % [place] % (Auto) 18.7 H (3.0-10.0) % Eos % (Auto) 3.7 (1.0-5.0) % Baso % (Auto) 0.7 H (0.0-0.5) % Neut # (Auto) 2.39 (2.00-7.50) K/uL Lymph # (Auto) 1.72 (1.50-4.00) K/uL [place] # (Auto) 1.00 H (0.20-0.80) K/uL Eos # (Auto) 0.20 (0.04-0.40) K/uL Baso # (Auto) 0.04 (0.02-0.10) K/uL Sodium 145 (136-145) mmol/L Potassium 4.5 (3.5-5.1) mmol/L Chloride 109 H (98-107) mmol/L Carbon Dioxide 28.4 D (21.0-32.0) mmol/L Anion Gap 12.1 (5.0-15.0) mmol/L BUN 18 D (8-26) mg/dL Creatinine 1.15 D (0.70-1.30) mg/dL Est Cr Clr Drug Dosing 53.78 mL/min Estimated GFR (MDRD) > 60 (>60) MLS/MIN BUN/Creatinine Ratio 15.7 (6-25) Glucose 122 H (74-100) mg/dL Calcium 8.3 L (8.5-10.1) mg/dL Troponin I < 0.017 (0.000-0.060) ng/mL B-Natriuretic Peptide 221 D (0-450) pg/mL Med Orders - Current: Current Medications Acetaminophen (Tylenol) 650 mg PO Q4H PRN PRN Reason: Pain/Fever Lorazepam (Ativan) 0.5 mg PO BEDTIME PRN PRN Reason: Sleep Non-Formulary Medication (Ferrous Sulfate [Ferrous Sulfate]) 325 mg PO DAILY ANIYA Non-Formulary Medication (Gabapentin [Neurontin]) 100 mg PO TID ANIYA Non-Formulary Medication (Lisinopril [Lisinopril]) 10 mg PO DAILY ANIYA Non-Formulary Medication (Omeprazole [Omeprazole]) 20 mg PO BIDAC ANIYA Non-Formulary Medication (Prednisone [Prednisone]) 5 mg PO DAILY ANIYA Non-Formulary Medication (Simvastatin [Zocor]) 20 mg PO BEDTIME ANIYA Non-Formulary Medication (Sumatriptan Succinate [Sumatriptan Succinate]) 25 mg PO DAILY PRN PRN Reason: headache Non-Formulary Medication (Terazosin [Hytrin]) 1 mg PO BEDTIME ANIYA Non-Formulary Medication (Tramadol [Ultram]) 50 mg PO QID ANIYA Ondansetron HCl (Zofran Odt) 4 mg PO Q4H PRN PRN Reason: Nausea/Vomiting Discontinued Medications Ferrous Sulfate (Ferrous Sulfate) 325 mg PO ONETIME ONE Stop: 08/31/19 09:31 Last Admin: 08/31/19 10:35 Dose: 325 mg Gabapentin (Neurontin) Confirm Administered Dose 100 mg .ROUTE .STK-MED ONE Stop: 08/31/19 09:14 Last Admin: 08/31/19 09:53 Dose: 100 mg Gabapentin (Neurontin) 100 mg PO ONETIME ONE Stop: 08/31/19 09:31 Last Admin: 08/31/19 09:51 Dose: 100 mg Omeprazole (Omeprazole) 20 mg PO ONETIME ONE Stop: 08/31/19 09:31 Last Admin: 08/31/19 10:34 Dose: 20 mg Prednisone (Prednisone) Confirm Administered Dose 5 mg .ROUTE .STK-MED ONE Stop: 08/31/19 09:15 Last Admin: 08/31/19 09:52 Dose: 5 mg Prednisone (Prednisone) 5 mg PO ONETIME ONE Stop: 08/31/19 09:31 Last Admin: 08/31/19 09:50 Dose: 5 mg Tramadol HCl (Ultram) Confirm Administered Dose 50 mg .ROUTE .STK-MED ONE Stop: 08/31/19 09:14 Last Admin: 08/31/19 09:53 Dose: 50 mg Tramadol HCl (Ultram) 50 mg PO ONETIME ONE Stop: 08/31/19 09:31 Last Admin: 08/31/19 09:50 Dose: 50 mg - Exam General: Reports: Alert, Oriented, No Acute Distress HEENT: Reports: Pupils Equal, Pupils Reactive, EOMI, Mucous Membr. Moist/[place] Neck: Reports: Supple Lungs: Reports: Clear to Auscultation, Normal Respiratory Effort Cardiovascular: Reports: Regular Rate, Regular Rhythm GI/Abdominal Exam: Soft, Non-Tender, No Distention Extremities: Normal Capillary Refill Skin: Reports: Warm, Dry, Intact Neurological: Reports: No New Focal Deficit Psy/Mental Status: Reports: Alert, Normal Affect, Normal Mood
[2019-08-31] MEDS ORDERED: TERAZOSIN 1 MG PO SCH (20:00)
[2019-08-31] MEDS ORDERED: Non-Formulary Medication 1 Each (Simvastatin [Zocor] 20 MG) PO SCH (20:00)
== END 2019-08-31 12:16 | disposition home or self-care (01) ==
LOC: LB.ED 01:42 → LB.MS 04:07
PROVIDERS: ADMIT Nurse Practitioner; ATTEND Nurse Practitioner
DX: R00.1 Bradycardia, unspecified (principal); I95.9 Hypotension, unspecified; I50.9 Heart failure, unspecified; K21.9 Gastro-esophageal reflux disease without esophagitis; Z88.0 Allergy status to penicillin; Z88.8 Allergy status to other drugs, medicaments and biological substances; Z79.899 Other long term (current) drug therapy
CPT/HCPCS: 0296T; 0297T; 36415; 71045; 80048; 83880; 84484; 85025; 87077; 87186; 93005; 99234; 99285-25; A9270-GY; G0378; J7512

== ENCOUNTER 2019-10-31 19:02 | Emergency (ER) | payer MEDICARE, OTHER ==
[2019-10-31 19:31] VITALS: BP 152/75; PULSE 91
--- NOTE | 2019-10-31 20:17 | EDM.PDOC ---
ED HPI GENERAL MEDICAL PROBLEM - General Chief Complaint: Laceration Stated Complaint: FELL Time Seen by Provider: 10/31/19 20:10 Source of Information: Reports: Patient History Limitations: Reports: No Limitations - History of Present Illness Onset: Today, Sudden Onset Time: 18:00 (3) Duration: Hour(s): Location: Reports: Face Quality: Reports: Ache Severity: Moderate Improves with: Reports: None Worsens with: Reports: None Context: Reports: Activity Associated Symptoms: Reports: No Other Symptoms Treatments TOOL FILER HAND: Reports: Other (see below) Other Treatments TOOL FILER HAND: none - Related Data Allergies Allergy/AdvReac Type Severity Reaction Status Date / Time Penicillins Allergy Rash Verified 05/10/19 01:31 procaine HCl [From Novocain] Allergy Syncope Verified 10/31/19 20:16 Home Meds: Home Meds Ferrous Sulfate 325 mg PO DAILY 03/30/15 [History] Gabapentin [Neurontin] 100 mg PO TID 03/30/15 [History] Omeprazole 20 mg PO BIDAC 03/30/15 [History] SUMAtriptan succinate [Sumatriptan Succinate] 25 mg PO DAILY PRN 03/30/15 [Hist ory] Simvastatin [Zocor] 20 mg PO BEDTIME 03/30/15 [History] Terazosin [Hytrin] 1 mg PO BEDTIME 03/30/15 [History] predniSONE [Prednisone] 5 mg PO DAILY 03/30/15 [History] traMADol [Ultram] 50 mg PO QID 03/30/15 [History] carvediloL [Coreg] 12.5 mg PO BID 05/10/19 [History] Past Medical History HEENT History: Reports: Macular Degeneration Other HEENT History: Lens implants bilateral, and injections in right eye every 6 weeks Cardiovascular History: Reports: Heart Failure, [place] Respiratory History: Reports: None Gastrointestinal History: Reports: Chronic Diarrhea, GERD, Other (See Below) Other Gastrointestinal History: Louis Wrap for Barretts esophogus Genitourinary History: Reports: BPH Musculoskeletal History: Reports: Arthritis Neurological History: Reports: CVA, Migraines Psychiatric History: Reports: None Endocrine/Metabolic History: Reports: None Hematologic History: Reports: Anemia Oncologic (Cancer) History: Reports: None Dermatologic History: Reports: Eczema Other Dermatologic History: rash on back and right leg - Infectious Disease History Infectious Disease History: Reports: MRSA - Past Surgical History GI Surgical History: Reports: Alexander Fundoplication, Small Bowel, Other (See Below) Social & Family History - Tobacco Use Smoking Status *Q: Former Smoker Used Tobacco, but Quit: Yes Month/Year Tobacco Last Used: na - Caffeine Use Caffeine Use: Reports: Coffee - Alcohol Use Days Per Week of Alcohol Use: 5 Number of Drinks Per Day: 3 Total Drinks Per Week: 15 - Recreational Drug Use Recreational Drug Use: No - Living Situation & Occupation Living situation: Reports: ED ROS GENERAL - Review of Systems Review Of Systems: See Below Constitutional: Reports: No Symptoms HEENT: Reports: No Symptoms Respiratory: Reports: No Symptoms Cardiovascular: Reports: Blood Pressure Problem. Denies: Chest Pain, C laudication, Dyspnea on Exertion Endocrine: Reports: No Symptoms Musculoskeletal: Denies: Neck Pain, Shoulder Pain, Arm Pain Skin: Reports: Erythema, Wound (4cm lac over right eye after stumble in doorway at home) Neurological: Reports: No Symptoms Psychiatric: Reports: No Symptoms Hematologic/Lymphatic: Reports: No Symptoms Immunologic: Reports: No Symptoms ED EXAM, SKIN/RASH Exam: See Below Exam Limited By: No Limitations General Appearance: Alert, WD/WN, No Apparent Distress Neck: Normal Inspection Cardiovascular: Normal Peripheral Pulses, Regular Rate, Rhythm Extremities: Normal Inspection Neurological: Alert, Oriented, Normal Cognition, No Motor/Sensory Deficits Psychiatric: Normal Affect Skin: Warm, Dry, Intact Location, Skin: Face (4cm lac above right eye) Characteristics: Linear Associated features: Warmth, Swelling Lymphatic: No Adenopathy ED SKIN PROCEDURES - Laceration/Wound Repair Right Face Appearance: Subcutaneous Distal NVT: Neuro & Vascular Intact, No Tendon Injury Anesthetic Type: Local Local Anesthesia - Lidocaine (Xylocaine): 1% Plain Local Anesthetic Volume: 2cc Skin Prep: Chlorhexidine (Hibiciens) Exploration/Debridement/Repair: Wound Explored, In a Bloodless Field, Explored to Base, No Foreign Material Found Closed with: Sutures Lac/Wound length In cm: 4 Suture Size: 4-0 # of Sutures: 4 Suture Type: Nylon, Simple Course - Vital Signs Text/Narrative:: Patient fell earlier this evening approximately 1.5 hours prior to arrival. He has a subcutaneous laceration with edema covered by gauze upon arrival. He denies loss consciousness, or syncope. He states he tripped on a door jam after returning inside from his freezer causing him to fall into the door frame. He is neurologically intact able to state what day it was, who was president and where he was without hesitation. He denied double vision and able to identify 2 tingers before his face. I Obtained verbal consent to repair laceration on right forehead over the patients right eye. The area was cleansed with hibiclens. Allergies were verified. He received 2 cc of lidocaine. The area was cleaned and evaluated for foreign debris. The laceration was closed with 4-0 ethilon with #4 sutures. The laceration was covered with bacitracin and a bandaid by the ER Nurse. Patient ambulated from the Er of his own accord. He was instructed to come to the clinic in 7-10 days for stitch removal. Tetanus was current as of 01/2016 Last Recorded V/S: Last Vital Signs Temp 37.3 C 10/31/19 19:27 Pulse 91 10/31/19 19:27 Resp 18 10/31/19 19:27 BP 152/75 H 10/31/19 19:27 Pulse Ox 97 10/31/19 19:27 Departure - Departure Time of Disposition: 20:20 Disposition: Home, Self-Care 01 Condition: Good Clinical Impression: Abrasion - Discharge Information *PRESCRIPTION DRUG MONITORING PROGRAM REVIEWED*: Not Applicable Instructions: Laceration Care, Adult, [id number], Sutures, Cleo, or Adhesive Wound Closure, [id number] Referrals: PCP,None [Primary Care Provider] - Forms: ED Department Discharge Care Plan Goals: Keep area clean and dry; avoid scrubbing area for at least 7 days but you may run water over it and pat dry to maintain cleanliness. Apply bacitracin to surface as needed for 7 days. Sutures should be removed in 7 days. Sepsis Event Note (ED) - Evaluation Sepsis Screening Result: No Definite Risk - Focused Exam Vital Signs: Vital Signs Temp Pulse Resp BP Pulse Ox 10/31/19 19:27 37.3 C 91 18 152/75 H 97
== END 2019-10-31 20:24 | disposition home or self-care (01) ==
LOC: LB.ED 19:02
DX: S01.81XA Laceration without foreign body of other part of head, initial encounter (principal); I50.9 Heart failure, unspecified; I25.2 Old myocardial infarction; K21.9 Gastro-esophageal reflux disease without esophagitis; Z79.899 Other long term (current) drug therapy; Z88.0 Allergy status to penicillin; Z88.4 Allergy status to anesthetic agent; Z86.73 Personal history of transient ischemic attack (TIA), and cerebral infarction without residual deficits; Z87.891 Personal history of nicotine dependence; X58.XXXA Exposure to other specified factors, initial encounter
CPT/HCPCS: 12013; 99282

== ENCOUNTER 2020-10-30 09:01 | Emergency (ER) | payer OTHER ==
--- NOTE | 2020-10-30 10:31 | EDM.PDOC ---
ED HPI GENERAL MEDICAL PROBLEM - General Chief Complaint: Cardiovascular Problem Stated Complaint: SOB Time Seen by Provider: 10/30/20 10:00 Source of Information: Reports: Patient History Limitations: Reports: No Limitations - History of Present Illness INITIAL COMMENTS - FREE TEXT/NARRATIVE: patient presented to the ER with a c/o chest congestion. reports it has been going on for 5 days. Runny nose and cough - productive of whitish sputum. no fever or chills. mild chest tightness. Also reports mild/moderate left lower rib pain with coughing. h/o CAD s/p stents and pace maker in the past. no LEs edema. Onset: Gradual Duration: Day(s): (5) Location: Reports: Chest Severity: Mild - Related Data Allergies Allergy/AdvReac Type Severity Reaction Status Date / Time Penicillins Allergy Rash Verified 05/10/19 01:31 procaine HCl [From Novocain] Allergy Syncope Verified 10/31/19 20:16 Home Meds: Home Meds Ferrous Sulfate 325 mg PO DAILY 03/30/15 [History] Gabapentin [Neurontin] 100 mg PO TID 03/30/15 [History] Omeprazole 20 mg PO BIDAC 03/30/15 [History] SUMAtriptan succinate [Sumatriptan Succinate] 25 mg PO DAILY PRN 03/30/15 [History] Simvastatin [Zocor] 20 mg PO BEDTIME 03/30/15 [History] Terazosin [Hytrin] 1 mg PO BEDTIME 03/30/15 [History] predniSONE [Prednisone] 5 mg PO DAILY 03/30/15 [History] traMADol [Ultram] 50 mg PO QID 03/30/15 [History] carvediloL [Coreg] 12.5 mg PO BID 05/10/19 [History] Past Medical History HEENT History: Reports: Macular Degeneration Other HEENT History: Lens implants bilateral, and injections in right eye every 6 weeks Cardiovascular History: Reports: Heart Failure, [place] Respiratory History: Reports: None Gastrointestinal History: Reports: Chronic Diarrhea, GERD, Other (See Below) Other Gastrointestinal History: Louis Wrap for Barretts esophogus Genitourinary History: Reports: BPH Musculoskeletal History: Reports: Arthritis Neurological History: Reports: CVA, Migraines Psychiatric History: Reports: None Endocrine/Metabolic History: Reports: None Hematologic History: Reports: Anemia Oncologic (Cancer) History: Reports: None Dermatologic History: Reports: Eczema Other Dermatologic History: rash on back and right leg - Infectious Disease History Infectious Disease History: Reports: MRSA - Past Surgical History GI Surgical History: Reports: Alexander Fundoplication, Small Bowel, Other (See Below) Social & Family History - Caffeine Use Caffeine Use: Reports: Coffee - Living Situation & Occupation Living situation: Reports: ED ROS GENERAL - Review of Systems Review Of Systems: See Below HEENT: Reports: No Symptoms Respiratory: Reports: Shortness of Breath, Cough, Sputum Cardiovascular: Reports: Dyspnea on Exertion GI/Abdominal: Reports: No Symptoms Musculoskeletal: Reports: No Symptoms Skin: Reports: No Symptoms Neurological: Reports: No Symptoms Psychiatric: Reports: No Symptoms ED EXAM, GENERAL - Physical Exam Exam: See Below Exam Limited By: No Limitations General Appearance: Alert, WD/WN, No Apparent Distress Eye Exam: Bilateral Eye: EOMI Respiratory/Chest: No Respiratory Distress, Lungs Clear, Normal Breath Sounds Cardiovascular: Normal Peripheral Pulses, Regular Rate, Rhythm GI/Abdominal: Normal Bowel Sounds Back Exam: Normal Inspection Neurological: Alert, Oriented, No Motor/Sensory Deficits Psychiatric: Normal Affect Skin Exam: Warm Course - Vital Signs Last Recorded V/S: Last Vital Signs Temp 36.7 C 10/30/20 10:23 Pulse 67 10/30/20 10:23 Resp 20 10/30/20 10:23 BP 154/78 H 10/30/20 10:23 Pulse Ox 99 10/30/20 10:23 - Orders/Labs/Meds Orders: Active Orders 24 hr Category Date Time Status EKG Documentation Completion [RC] ASDIRECTED Care 10/30/20 10:27 Ordered RT Aerosol Therapy [RC] ASDIRECTED Care 10/30/20 10:26 Ordered Chest 2V [CR] Stat Exams 10/30/20 09:32 Taken EKG 12 Lead [EK] Routine Ther 10/30/20 10:27 Ordered Labs: Laboratory Tests 10/30/20 10/30/20 10/30/20 Range/Units 09:59 10:30 10:30 WBC 7.9 D (4.0-11.0) K/uL RBC 3.71 L (4.50-6.50) M/uL Hgb 12.3 L (13.0-18.0) g/dL Hct 35.4 L (40.0-54.0) % MCV 95 (76-96) fL MCH 33.2 H (27.0-32.0) pg MCHC 34.7 (31.0-35.0) g/dL RDW 14.0 (11.0-16.0) % Plt Count 268 (150-400) K/uL MPV 9.6 (6.0-10.0) fL Neut % (Auto) 65.2 (45.0-70.0) % Lymph % (Auto) 15.0 L (20.0-40.0) % [place] % (Auto) 15.3 H (3.0-10.0) % Eos % (Auto) 4.4 (1.0-5.0) % Baso % (Auto) 0.1 (0.0-0.5) % Neut # (Auto) 5.15 (2.00-7.50) K/uL Lymph # (Auto) 1.19 L (1.50-4.00) K/uL [place] # (Auto) 1.21 H (0.20-0.80) K/uL Eos # (Auto) 0.35 (0.04-0.40) K/uL Baso # (Auto) 0.01 L (0.02-0.10) K/uL Sodium 143 (136-145) mmol/L Potassium 3.8 (3.5-5.1) mmol/L Chloride 106 (98-107) mmol/L Carbon Dioxide 28.4 (21.0-32.0) mmol/L Anion Gap 12.4 (5.0-15.0) mmol/L BUN 14 D (8-26) mg/dL Creatinine 0.92 (0.70-1.30) mg/dL Est Cr Clr Drug Dosing 59.58 mL/min Estimated GFR (MDRD) > 60 (>60) MLS/MIN BUN/Creatinine Ratio 15.2 (6-25) Glucose 119 H (74-100) mg/dL Calcium 8.7 (8.5-10.1) mg/dL Troponin I (0.000-0.060) ng/mL SARS CoV-2 RNA Rapid JASPER Negative 10/30/20 Range/Units 10:30 WBC (4.0-11.0) K/uL RBC (4.50-6.50) M/uL Hgb (13.0-18.0) g/dL Hct (40.0-54.0) % MCV (76-96) fL MCH (27.0-32.0) pg MCHC (31.0-35.0) g/dL RDW (11.0-16.0) % Plt Count (150-400) K/uL MPV (6.0-10.0) fL Neut % (Auto) (45.0-70.0) % Lymph % (Auto) (20.0-40.0) % [place] % (Auto) (3.0-10.0) % Eos % (Auto) (1.0-5.0) % Baso % (Auto) (0.0-0.5) % Neut # (Auto) (2.00-7.50) K/uL Lymph # (Auto) (1.50-4.00) K/uL [place] # (Auto) (0.20-0.80) K/uL Eos # (Auto) (0.04-0.40) K/uL Baso # (Auto) (0.02-0.10) K/uL Sodium (136-145) mmol/L Potassium (3.5-5.1) mmol/L Chloride (98-107) mmol/L Carbon Dioxide (21.0-32.0) mmol/L Anion Gap (5.0-15.0) mmol/L BUN (8-26) mg/dL Creatinine (0.70-1.30) mg/dL Est Cr Clr Drug Dosing mL/min Estimated GFR (MDRD) (>60) MLS/MIN BUN/Creatinine Ratio (6-25) Glucose (74-100) mg/dL Calcium (8.5-10.1) mg/dL Troponin I < 0.017 (0.000-0.060) ng/mL SARS CoV-2 RNA Rapid JASPER Meds: Medications Discontinued Medications Generic Name Dose Route Start Last Admin Trade Name Freq PRN Reason Stop Dose Admin Albuterol/Ipratropium 3 ml 10/30/20 10:26 Albuterol/Ipratropium 3.0-0.5 Mg/3 Ml Neb Soln NEB 10/30/20 10:27 NOW STA Cetirizine HCl 10 mg 10/30/20 10:27 Cetirizine 10 Mg Tab PO 10/30/20 10:28 ONETIME ONE - Re-Assessments/Exams Free Text/Narrative Re-Assessment/Exam: CXR no infiltrates labs - CBC, BMP and Trop - all WNL DuoNeb was given Po Zyrtec as well Departure - Departure Time of Disposition: 11:30 Disposition: Home, Self-Care 01 Condition: Good Clinical Impression: Allergic cough, Chest wall pain - Discharge Information *PRESCRIPTION DRUG MONITORING PROGRAM REVIEWED*: Not Applicable *COPY OF PRESCRIPTION DRUG MONITORING REPORT IN PATIENT CRISTIANO: Not Applicable Instructions: Cough, Adult, [id number], Nonspecific Chest Pain, Adult, [id number] Referrals: Donna Aldridge MD [Primary Care Provider] - Forms: ED Department Discharge Sepsis Event Note (ED) - Focused Exam Vital Signs: Vital Signs Temp Pulse Resp BP Pulse Ox 10/30/20 10:23 36.7 C 67 20 154/78 H 99 - Problem List & Annotations (1) Allergic cough SNOMED Code(s): 853870252 Code(s): R05 - COUGH Status: Acute Priority: Low Current Visit: Yes (2) Chest wall pain SNOMED Code(s): 278528693 Code(s): R07.89 - OTHER CHEST PAIN Status: Acute Priority: Low Current Visit: Yes - Problem List Review Problem List Initiated/Reviewed/Updated: Yes - My Orders Last 24 Hours: My Active Orders 10/30/20 09:32 Chest 2V [CR] Stat 10/30/20 10:26 RT Aerosol Therapy [RC] ASDIRECTED 10/30/20 10:27 EKG Documentation Completion [RC] ASDIRECTED EKG 12 Lead [EK] Routine - Assessment/Plan Last 24 Hours: My Active Orders 10/30/20 09:32 Chest 2V [CR] Stat 10/30/20 10:26 RT Aerosol Therapy [RC] ASDIRECTED 10/30/20 10:27 EKG Documentation Completion [RC] ASDIRECTED EKG 12 Lead [EK] Routine Plan: - take Zyrtec for allergy as needed - Take Tylenol/ibuprofen for chest wall pain - ok to apply warm pads on the affected area - follow up with the PCP as needed in 1-2 weeks - return to the ER if symptoms got worse or any concerns
[2020-10-30 10:37] VITALS: BP 154/78; PULSE 67
[2020-10-30] MEDS: Albuterol/Ipratropium 3.0-0.5 MG/3 ML Neb Soln NEB STA (11:18)
[2020-10-30] MEDS: Loratadine 10 MG Tab PO ONE (11:44)
[2020-10-30] MEDS: Cetirizine 10 MG Tab PO ONE (18:45)
--- NOTE | 2020-10-31 11:04 | CR ---
Date of Service: 10/30/20 Clinical Data: chest congestion PA AND LATERAL CHEST: Comparison is made to a prior exam dated 08/31/19. The heart size is normal. The aorta is ectatic. There is a cardiac pacer overlying the left chest and the distal pacer wires are in the region of the right trium and right ventricle. The lungs are mildly hyperexpanded, but clear. No pneumothorax. No pleural effusions . No evidence of acute intrathoracic disease. [id number] [facility]
== END 2020-10-30 16:00 | disposition home or self-care (01) ==
LOC: LB.ED 09:01
DX: T78.40XA Allergy, unspecified, initial encounter (principal); R07.89 Other chest pain; R05 Cough; I50.9 Heart failure, unspecified; I25.2 Old myocardial infarction; K21.9 Gastro-esophageal reflux disease without esophagitis; D64.9 Anemia, unspecified; Z88.0 Allergy status to penicillin; Z88.4 Allergy status to anesthetic agent; Z79.899 Other long term (current) drug therapy; Z20.822 Contact with and (suspected) exposure to COVID-19
CPT/HCPCS: 36415; 71046; 80048; 84484; 85025; 93005; 99284-25; J7620-GY; U0002

== ENCOUNTER 2024-10-27 16:49 | Observation (INO) | payer MEDICARE, OTHER ==
[2024-10-27 17:58] LABS: BASOPHILS ABSOLUTE AUTO 0.02 K/uL (0.02-0.10); BASOPHILS PERCENT AUTO 0.2 % (0.0-0.5); EOSINOPHILS ABSOLUTE AUTO 0.10 K/uL (0.04-0.40); EOSINOPHILS PERCENT AUTO 1.1 % (1.0-5.0); LYMPHOCYTES ABSOLUTE AUTO 1.91 K/uL (1.50-4.00); LYMPHOCYTES PERCENT AUTO 21.5 % (20.0-40.0); MEAN PLATELET VOLUME 8.9 fL (6.0-10.0); MONOCYTES ABSOLUTE AUTO 0.71 K/uL (0.20-0.80); MONOCYTES PERCENT AUTO 8.0 % (3.0-10.0); NEUTROPHILS ABSOLUTE AUTO 6.15 K/uL (2.00-7.50); NEUTROPHILS PERCENT AUTO 69.2 % (45.0-70.0); PLATELET COUNT,PLT 242 K/uL (150-400); RED BLOOD CELL COUNT 3.74 M/uL (4.50-6.50); RED CELL DISTRIBUTION WIDTH 14.0 % (11.0-16.0); WHITE BLOOD CELL COUNT,WBC 8.9 K/uL (4.0-11.0)
[2024-10-27 18:24] LABS: A/G RATIO 1.1 (0.8-2.0); ALANINE AMINOTRANSFERASE,ALT 17.0 U/L (12-78); ASPARTATE AMNIOTRANSFERASE,AST 15.0 U/L (15-37); BILIRUBIN TOTAL 0.9 mg/dL (0.0-1.0); CARBON DIOXIDE,CO2 25.2 mmol/L (21.0-32.0); CHLORIDE,CL 102.0 mmol/L (98-107); CREATININE 1.33 mg/dL (0.70-1.30); EST CRCL DRUG DOSING (CG) 34.64 mL/min; ESTIMATED GFR 53.0 mL/min (>60); GLUCOSE RANDOM 109.0 mg/dL (74-100); POTASSIUM,K 4.0 mmol/L (3.5-5.1); PROTEIN TOTAL,TP 6.0 g/dL (6.4-8.2); SODIUM,NA 139.0 mmol/L (136-145); TSH ULTRASENSITIVE 1.165 uIU/mL (0.358-3.740)
[2024-10-27 18:27] LABS: CREATINE KINASE,CK 48.0 U/L (21-232); PRO B-TYPE NATRIUR PEPT,BNPPRO 174.0 pg/mL (0-450); TROPONIN I HIGH SENSITIVITY 8.9 pg/ml (<=60.4)
[2024-10-27 18:29] LABS: BLOOD UREA NITROGEN,BUN 17.0 mg/dL (8-26)
[2024-10-27 18:38] LABS: INR 1.1 (1.0-3.5); PTT,PARTIAL THROMBOPLSTIN TIME 24.7 SECONDS (24.4-33.2)
[2024-10-27] MEDS ORDERED: Non-Formulary Medication 1 Each (Simvastatin [Zocor] 20 MG Tablet) PO SCH (20:00)
[2024-10-27] MEDS ORDERED: Non-Formulary Medication 1 Each (Carvedilol [Coreg] 25 MG Tablet) PO SCH (20:00)
[2024-10-27] MEDS ORDERED: TERAZOSIN 1 MG PO SCH (20:00)
[2024-10-27] MEDS ORDERED: Non-Formulary Medication 1 Each (Omeprazole [Omeprazole] 20 MG Cap.Cr) PO SCH (20:00)
[2024-10-27] MEDS ORDERED: TRAMADOL 50 MG PO SCH (20:00)
[2024-10-27] MEDS ORDERED: GABAPENTIN 100 MG PO SCH (20:00)
[2024-10-27 20:13] LABS: APPEARANCE,URINE CLEAR (CLEAR); GLUCOSE,URINE NEGATIVE (NEGATIVE); OCCULT BLOOD,URINE NEGATIVE (NEGATIVE)
[2024-10-28] MEDS ORDERED: PREDNISONE 5 MG PO SCH (08:00)
[2024-10-28 08:02] LABS: BASOPHILS ABSOLUTE AUTO 0.04 K/uL (0.02-0.10); BASOPHILS PERCENT AUTO 0.5 % (0.0-0.5); EOSINOPHILS ABSOLUTE AUTO 0.28 K/uL (0.04-0.40); EOSINOPHILS PERCENT AUTO 3.8 % (1.0-5.0); LYMPHOCYTES ABSOLUTE AUTO 2.05 K/uL (1.50-4.00); LYMPHOCYTES PERCENT AUTO 27.7 % (20.0-40.0); MEAN PLATELET VOLUME 9.0 fL (6.0-10.0); MONOCYTES ABSOLUTE AUTO 0.82 K/uL (0.20-0.80); MONOCYTES PERCENT AUTO 11.1 % (3.0-10.0); NEUTROPHILS ABSOLUTE AUTO 4.22 K/uL (2.00-7.50); NEUTROPHILS PERCENT AUTO 56.9 % (45.0-70.0); PLATELET COUNT,PLT 221 K/uL (150-400); RED BLOOD CELL COUNT 3.25 M/uL (4.50-6.50); RED CELL DISTRIBUTION WIDTH 14.2 % (11.0-16.0); WHITE BLOOD CELL COUNT,WBC 7.4 K/uL (4.0-11.0)
[2024-10-28 08:20] LABS: A/G RATIO 1.0 (0.8-2.0); ALANINE AMINOTRANSFERASE,ALT 13.0 U/L (12-78); ASPARTATE AMNIOTRANSFERASE,AST 11.0 U/L (15-37); BILIRUBIN TOTAL 0.8 mg/dL (0.0-1.0); BLOOD UREA NITROGEN,BUN 12.0 mg/dL (8-26); CARBON DIOXIDE,CO2 25.6 mmol/L (21.0-32.0); CHLORIDE,CL 110.0 mmol/L (98-107); CREATININE 0.96 mg/dL (0.70-1.30); EST CRCL DRUG DOSING (CG) 46.59 mL/min; ESTIMATED GFR 78.0 mL/min (>60); GLUCOSE RANDOM 101.0 mg/dL (74-100); POTASSIUM,K 3.7 mmol/L (3.5-5.1); PROTEIN TOTAL,TP 4.7 g/dL (6.4-8.2); SODIUM,NA 144.0 mmol/L (136-145)
[2024-10-28 12:21] VITALS: PULSE 78
[2024-10-28 14:40] VITALS: BP 105/68
== END 2024-10-28 14:22 | disposition home or self-care (01) ==
LOC: LB.ED 16:49 → LB.MS 19:42 → UNDOADMOB 19:45
PROVIDERS: ADMIT Physician Assistant; ATTEND Physician Assistant
DX: E86.0 Dehydration (principal); R53.1 Weakness; F17.210 Nicotine dependence, cigarettes, uncomplicated; Z88.0 Allergy status to penicillin; Z88.8 Allergy status to other drugs, medicaments and biological substances; Z79.899 Other long term (current) drug therapy
CPT/HCPCS: 36415; 70450; 71250; 72125; 74176; 80053; 81001; 82550; 83605; 83735; 83880; 84443; 84484; 85025; 85379; 85610; 85730; 86140; 93005; 96360; 96361; 96372; 97161; 99285; A9270; G0378; J1650; J7030; J7512; 99222; 99238

== ENCOUNTER 2025-02-21 20:06 | Emergency (ER) | payer MEDICARE, OTHER ==
[2025-02-21] MEDS: Ondansetron 4 MG/2 ML SDV IVPUSH ONE (21:14)
[2025-02-21] MEDS ORDERED: Sodium Chloride 0.9% 10 ML Syringe FLUSH PRN (21:15)
[2025-02-21] MEDS ORDERED: Acetaminophen/oxyCODONE 325-5 MG Tab ONE (22:30)
[2025-02-22 00:14] VITALS: BP 175/92; PULSE 73
== END 2025-02-21 22:45 | disposition home or self-care (01) ==
LOC: LB.ED 20:06
DX: S20.211A Contusion of right front wall of thorax, initial encounter (principal); I11.0 Hypertensive heart disease with heart failure; I50.9 Heart failure, unspecified; I25.2 Old myocardial infarction; K21.9 Gastro-esophageal reflux disease without esophagitis; Z86.73 Personal history of transient ischemic attack (TIA), and cerebral infarction without residual deficits; Z79.899 Other long term (current) drug therapy; Z88.0 Allergy status to penicillin; Z88.8 Allergy status to other drugs, medicaments and biological substances; W01.198A Fall on same level from slipping, tripping and stumbling with subsequent striking against other object, initial encounter; Y93.01 Activity, walking, marching and hiking; Y92.009 Unspecified place in unspecified non-institutional (private) residence as the place of occurrence of the external cause
CPT/HCPCS: 71250; 73060-RT; 74150; 74176; 96374; 96375; 99284-25; A9270-GY; J1171; J2405